=== PATIENT | male | born 1945 | race Caucasian/White ===

== ENCOUNTER 2017-11-10 08:00 | Outpatient (RCR) | payer MEDICARE, OTHER, SELFPAY ==
--- NOTE | 2017-10-10 10:28 | HP.OTEVAL_ITS ---
Patient's Visit Information MORENA MICHAEL is a 72 year old M, referred to Occupational Therapy by Gatito Reilly MD,, with a diagnosis of extensor laceration with repair. Date of Evaluation: 10/10/17 Occupational Therapist: Dori Mckee, OTR/Zander, CHT - Subjective Subjective: Pt states he got his hand caught in a log splitter on Aug.11 - ER here in [place] [facility] to [place] to see Dr. Reilly- performed sx. 3-4 days later-( pt is unsure of the date)and another sx was on Sep.03 for further repair - pt just to on Oct.04 for pin removal- has ordered OT to eval and tret. strengthening- ADL/work simplification/joint protection AROM/AAROM- edema control PROM scar mtg. pt is retired [employer] and has cont. to be active with home mtg and leisure activities as golf and splitting fire wood. - ROM ROM Comments: right/left IF MCP 78/85 PIP 93/98 DIP 45/55. right/Left MF MCP 79/90 PIP 80/103 DIP 50/55. right/Left RF 65/80 PIP 88/105 DIP 30/60. right/ LEft LF 65/80 PIP/DIP NA - Strength Shoulder: Right/left WFL Elbow: right/ left WFL Forearm: right/ left wfl Wrist: right/ left wfl Tar Roofer: RIGHT 40# left 80# Lateral Pinch: right 12# left 143 Tripod Pinch: right 10# left 12# - Edema PIP: right MF 7.5 left 6.5 right RF 6.0 left 5.5 - Sensation Sensation Comments: denies any sensation changes to digits 1-4. digit 5 discomfort with cold weather only - In-Hand Manipulation Finger to Palm Translation: Moderate - Right, Normal - Left Palm to Finger Translation: Moderate - Right, Normal - Left Shift: Mild - Right, Normal - Left Rotation: Mild - Right, Normal - Left - Hand/Wrist Evaluation Total Score of Pain & Functional Sections: 32 - Goals Goal:Daily scar massage when approriate: Yes Goal:ROM equal to unaffected hand: Yes Goal:Tar Roofer/Pinch strength at least 75% of unaffected hand: Yes Goal:PIP Circumferences equal to unaffected hand: Yes Goal:Full use of affected hand in daily activities including: Yes Goal:Decrease scar hypersensitivity: Yes - Rehabilitation General Assessment: Laceration of extensor muscle fascia and tendon of right middle finger at wrist and hand level. Laceration of right ring finger with complication. Amputation of right LF proximal PIP -. PT demo with healing extensor tendon repairs of right RF and MF-he is demo limited ability to form a composite fist with his dominate hand. Pt also demo with weak conveyor tender and pinch strength and decrease in FM coordination and dext. this is limiting pts ind. with BADLS and IADLS at this time req. assist from others. Pt would benefit from skilled CHT services to increase pts ind. with BADLS and IADLs . Rehabilitation Potential: Good - Anticipated Interventions Anticipated Interventions: A/AAROM/PROM, Strengthening, Edema Control, Scar Care , Triggerpoint Release, Desensitization, Modalities, Orthoses, Joint Protection/ Energy Conservation, Fine Motor Coord/Felipe - Visit Plan Frequency: 2x /Week Duration: 4 Weeks General Plan: pt to perform blocking ex with use of orthosis- pt demo required ed. on donning and doffing orthosis and review of ex. Will initiate mobilization program and porgress to strengthening as able- pt ed. this session on ad. eq. for meal prep- pt demo understanding of ex- pt ed. this session with scar mtg pt demo understanding. TEXT: Thank you for the opportunity to evaluate your patient. For Medicare and Medicare HMO plans, please review the plan of care and approve it. It will need to be FAXED BACK to us at [phone] for Medicare purposes. Please let me know if there are questions or concerns regarding this plan of care. Physician Signature: Date:
--- NOTE | 2017-11-11 09:05 | HP.OTREVAL ---
Gatito Reilly MD, It has been my pleasure to treat MORENA MICHAEL over the last 10 visits for extensor laceration with repair. Please see the progress note below for an update on the occupational therapy plan of care! Subjective: Pt states he is doing well- states he is ind. with HEP and Ind with BADLS and IADLS. pt states he cont. to have stiffness in AM but after working with his hand it is better. 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 right IF PIP 0/100. Right MF PIP 0/100 DIP No change in ROM from inital eval. right RF PIP 0/100. RIght LF MCP 0/75. PT demo with full composite fist- pt reports ind. with all BADLS and IADLS Plan Frequency: Pt to call and schedule if he feels he needs prior to his apt in december Duration: PRN until seen by drMaddy in december Plan: Pt has met goals in therapy and will see you in December- PT will cont with HEP until he is D/C from you or unless you have any other concerns you want therapy to address. pt was advised to call if he had any questions or concerns prior to his Dr. Anticipated Interventions Anticipated Interventions: A/AAROM/PROM, Strengthening, Edema Control, Scar Care, Triggerpoint Release, Desensitization, Modalities, Orthoses, Joint Protection/Energy Conservation, Fine Motor Coord/Felipe Please do not hesitate to contact me at [phone] by phone or if you have questions or concerns regarding this new plan of care! Sincerely, Dori Mckee, OTR/L, CHT
--- NOTE | 2017-11-11 09:06 | OTREVAL_ITS ---
Gatito Reilly MD, It has been my pleasure to treat MORENA MICHAEL over the last 10 visits for extensor laceration with repair. Please see the progress note below for an update on the occupational therapy plan of care! Subjective: Pt states he is doing well- states he is ind. with HEP and Ind with BADLS and IADLS. pt states he cont. to have stiffness in AM but after working with his hand it is better. 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 right IF PIP 0/100. Right MF PIP 0/100. right RF PIP 0/100. RIght LF MCP 0/75. PT demo with full composite fist- pt reports ind. with all BADLS and IADLS Plan Frequency: 2x /Week Duration: 4 Weeks Plan: D/C Anticipated Interventions Anticipated Interventions: A/AAROM/PROM, Strengthening, Edema Control, Scar Care , Triggerpoint Release, Desensitization, Modalities, Orthoses, Joint Protection/ Energy Conservation, Fine Motor Coord/Felipe Please do not hesitate to contact me at [phone] by phone or Fax: if you have questions or concerns regarding this new plan of care! Sincerely, Dori Mckee, OTR/L, CHT
--- NOTE | 2018-02-22 13:01 | HP.OTDCSUM ---
HP - OT D/C Summary It has been my pleasure to treat MORENA MICHAEL under orders from Gatito Reilly MD, for the diagnosis of extensor laceration with repair for a total of 10 visit(s). Please see the following information for a summary of their discharge status. - Overall Improvement % Improvement: 100 - Objective Objective/Function: right pulmonary function technologist 54#. right IF PIP 0/100. Right MF PIP 0/100 DIP No change in ROM from inital eval. right RF PIP 0/100. RIght LF MCP 0/75. PT demo with full composite fist- pt reports ind. with all BADLS and IADLS - Goals Patient Goals: Regain Mobility, Regain Strength, Return to Work, Decrease Swelling/Stiffness, Improve Fine Motor Skills, Use Hand/Wrist/Arm Normally Again, Increase ROM, Be More Independent in ADLS, Decrease Sensitivity Goal:Daily scar massage when approriate: Yes Goal:ROM equal to unaffected hand: Yes Goal:Change Management/Pinch strength at least 75% of unaffected hand: Yes Goal:PIP Circumferences equal to unaffected hand: Yes Goal:Full use of affected hand in daily activities including: Yes Goal:Decrease scar hypersensitivity: Yes - Plan Plan: Pt has met goals in therapy and will see you in December- PT will cont with HEP until he is D/C from you or unless you have any other concerns you want therapy to address. pt was advised to call if he had any questions or concerns prior to his Dr. - D/C Information If there are questions or concerns regarding this patient's occupational therapy, please fell free to call me at [phone]. Thank you for the referral of this patient. Sincerely, Dori Mckee, OTR/L, CHT
== END 2017-11-10 19:00 | disposition home or self-care (01) ==
LOC: OT 08:00
PROVIDERS: Family Provider Family Medicine; PCP Family Medicine; Visit Provider Orthopaedic Surgery
DX: S66.322D Laceration of extensor muscle, fascia and tendon of right middle finger at wrist and hand level, subsequent encounter (principal); S61.214D Laceration without foreign body of right ring finger without damage to nail, subsequent encounter; S68.11 Complete traumatic metacarpophalangeal amputation of other and unspecified finger
CPT/HCPCS: 97035; 97110; 97140; 97167; 97530

== ENCOUNTER 2018-01-06 13:59 | Day surgery (SDC) | payer MEDICARE, OTHER, SELFPAY ==
[2018-01-06] VITALS (9 sets, daily range): BP systolic 123–192; BP diastolic 58–104; PULSE 63–84; RESP 16–17; TEMP 36.7; O2SAT 92–97; BMI 30.5
--- NOTE | 2018-01-06 09:00 | ED.RN ---
This nurse attempted to have patient swallow coke and patient unable to. md notified
[2018-01-06 09:31] LABS: Absolute Lymphocyte Count 1.07 X10^3/ul (0.83-4.51); Absolute Neutrophil Count 4.5 X10^3/uL (2.0-7.7); Basophil# 0.01 X10^3/uL; Basophil% 0.2 % (0-1); Eosinophil# 0.35 X10^3/uL; Eosinophils% 5.4 % (0-5); Hematocrit 45.6 % (40-54); Hemoglobin 14.9 g/dl (13.0-16.5); Lymphocyte # 1.07 X10^3/ul (4.0); Lymphocyte % 16.4 % (19-41); Mean Corp Hgb Conc 32.7 g/gl (32-36); Mean Corpuscular Volume 91.9 fL (80-94); Mean Platelet Vol. 9.8 fl (6.2-12.0); Monocyte# 0.61 X10^3/uL; Monocyte% 9.3 % (0-10); Neutrophil # 4.49 X10^3/uL (2.7-7.7); Neutrophil % 68.5 % (47-70); Platelet Count 262 K/mm3 (150-450); RBC Distribution Width CV 12.7 % (11.6-14.6); Red Blood Count 4.96 M/mm3 (4.6-6.2); White Blood Count 6.5 K/mm3 (4.4-11.0)
[2018-01-06 09:39] LABS: POSITIVE COUNT NO; POSITIVE DIFFERENTIAL NO; POSITIVE MORPHOLOGY NO
[2018-01-06 09:47] LABS: Anion Gap 8 (5-15); BUN 9 mg/dL (7-18); BUN/Creat Ratio 10.6 RATIO (10-20); Calcium,Total 9.4 mg/dL (8.5-10.1); Chloride 103 mmol/L (98-107); Creatinine, Serum 0.85 mg/dL (0.70-1.30); EST Glomerular Filtration Rate 94 mL/min (>60); Est Glom Filt Rate - Afr Amer 113 mL/min (>60); Estimated Creatinine Clearance 79.92 ml/min; Glucose 119 mg/dL (74-106); Potassium 3.9 mmol/L (3.5-5.1); Sodium Level 141 mmol/L (136-145)
[2018-01-06] MEDS: proMETHazine 25 MG/ML Syringe 6.25 MG IV (10:11)
[2018-01-06] MEDS: Glucagon 1 MG/ML Syringe IV (10:17)
[2018-01-06] MEDS: Midazolam 2 MG/2 ML Syringe IV (10:18)
--- NOTE | 2018-01-06 10:29 | ED.RN ---
AFTER MEDICATIONS GIVEN PATIENT FALLING ASLEEP, MOUTH BREATHING, AND NOT TAKING DEEP BREATHS CAUSING SPO2 TO DROP TO 89% ON RA. 3L O2 VIA NC APPLIED AND SPO2 95-97%.
--- NOTE | 2018-01-06 10:33 | RAD_ITS ---
STUDY: X-RAY - SOFT TISSUE NECK REASON FOR EXAM: Male, 72 years old. Dysphasia. Possible radiopaque foreign body. TECHNIQUE: view(s) of the neck were obtained. COMPARISON: None. FINDINGS: Normal visualized nasopharynx, oropharynx, hypopharynx. Normal epiglottis. Normal visualized subglottic tracheal air column. Normal prevertebral soft tissue structures. There are degenerative changes of the cervical spine with cervical spondylosis. There is no demonstrated radiopaque foreign body. There are atherosclerotic calcifications of the carotid arteries. RAD/Neck for Soft Tissue IMPRESSION: No radiopaque foreign body is seen. Atherosclerotic calcification of the carotid bifurcation. Electronically Signed: Juan Miguel Cox MD at 11:08 EDT Tel [phone], Service support ,
--- NOTE | 2018-01-06 14:26 | ED.VISSUMM ---
- ER Visit Summary Date of Service: 01/06/18 Chief Complaint: [] Retained foreign body History of Present Illness: The patient is a 72 M [] complaining of sensation of retained foreign body that may be a pill fragment since last night. Patient reports he is unable to swallow his own saliva or drink any fluid. He reports choking sensation with multiple repeat attempts. Reports he has had this occur in the past has required EGD for resolution. Physical Examination: [] Afebrile, vital signs stable. 72-year-old male no acute distress. Unable to handle his own secretions. Cardiovascular exam was regular rate and rhythm. Lungs are clear to auscultation. Abdomen is soft and nontender. Test Results: [] CBC, BMP are within normal limits. Soft tissue x-ray of the neck shows no obvious foreign body retention. Emergency Department Course and Treatment: [] The patient was given intravenous fluids, Phenergan, glucagon, Versed, viscous oral lidocaine and attempt to resolve this foreign body sensation. After 3 unsuccessful attempts at taking oral fluids/ice chips the patient was discussed with Dr. Huff, baffle installer, who will perform an EGD. Treatment Plan: [] Transfer to endoscopy suite for urgent EGD. Disposition: [] Transfer to endoscopy suite. Stable. Impression: [] Retained esophageal foreign body This note was generated with [employer] dictation software. It may contain incorrect words, spelling, and punctuation that were not noted in review of the chart prior to signing ED Disposition - Plan for ED Patient: Disposition: Home or Assisted Living Chief Complaint: Foreign Body
--- NOTE | 2018-01-06 14:29 | ED.DCSUM_ITS ---
- ER Visit Summary Date of Service: 01/06/18 Chief Complaint: [] Retained foreign body History of Present Illness: The patient is a 72 M [] complaining of sensation of retained foreign body that may be a pill fragment since last night. Patient reports he is unable to swallow his own saliva or drink any fluid. He reports choking sensation with multiple repeat attempts. Reports he has had this occur in the past has required EGD for resolution. Physical Examination: [] Afebrile, vital signs stable. 72-year-old male no acute distress. Unable to handle his own secretions. Cardiovascular exam was regular rate and rhythm. Lungs are clear to auscultation. Abdomen is soft and nontender. Test Results: [] CBC, BMP are within normal limits. Soft tissue x-ray of the neck shows no obvious foreign body retention. Emergency Department Course and Treatment: [] The patient was given intravenous fluids, Phenergan, glucagon, Versed, viscous oral lidocaine and attempt to resolve this foreign body sensation. After 3 unsuccessful attempts at taking oral fluids/ice chips the patient was discussed with Dr. Huff, chief of anesthesiology, who will perform an EGD. Treatment Plan: [] Transfer to endoscopy suite for urgent EGD. Disposition: [] Transfer to endoscopy suite. Stable. Impression: [] Retained esophageal foreign body This note was generated with [employer] dictation software. It may contain incorrect words, spelling, and punctuation that were not noted in review of the chart prior to signing ED Disposition - Plan for ED Patient: Disposition: Acute Care [facility] Chief Complaint: Foreign Body Referrals: Asad Morton MD [Primary Care Provider] -
[2018-01-06 15:01] LABS: Bedside Glucose 80 mg/dL (70-110)
--- NOTE | 2018-01-06 17:10 | PCM.OP.BLANK ---
Operative Report Date of Procedure: 01/06/18 Preop diagnosis: Foreign body of the esophagus Postop diagnosis: EGD with foreign body removal Anesthesia: Provided the MAC Instrument: Olympus upper endoscope Informed consent was taken prior to procedure. The patient was brought to the endoscopy suite[ she] was placed left shoulder down. Retropharynx was sprayed with topical Cetacaine spray. Anesthesia provided the MAC. The scope was passed under direct visualization down into the esophagus. The proximal esophagus at 20 cm was a foreign body. The scope could not be passed by the foreign body using a snare the piece of meat was grasped and brought out. The scope was reintroduced into the esophagus there was a second piece of meat and this was brought out with the snare. The scope was reintroduced back into the esophagus the esophagus was clear there were tertiary contractions of the esophagus noted. The Z line was centimeters from the incisors there was a hiatal hernia no evidence of Thurston's mucosa. Stomach was examined the pylorus was deformed the bulbar duodenum appeared normal. The scope was withdrawn back into the stomach retroflexion was performed there was a hiatal hernia noted. The stomach was decompressed was withdrawn from the esophagus again in the proximal esophagus appeared to be some narrowing of the mucosa, there appeared to be tertiary contractions. Patient tolerated procedure well. Impression: Foreign body in the proximal esophagus removed with a snare patient appears to have some tertiary contractions of the esophagus. Soft diet continue the patient on a PPI should undergo a barium esophagram with a 12 mm tablet Plan: See above CC a copy
== END 2018-01-06 18:00 | disposition home or self-care (01) ==
PROVIDERS: Emergency Medicine; Family Provider Family Medicine; PCP Family Medicine; Visit Provider Internal Medicine Gastroenterology
PROC: 0DJ08ZZ Inspection of Upper Intestinal Tract, Via Natural or Artificial Opening Endoscopic (ICD-10-PCS; CPT 43235; principal; 2018-01-06 15:55)
DX: T18.128A Food in esophagus causing other injury, initial encounter (principal); X58.XXXA Exposure to other specified factors, initial encounter; K22.4 Dyskinesia of esophagus; K44.9 Diaphragmatic hernia without obstruction or gangrene; I25.10 Atherosclerotic heart disease of native coronary artery without angina pectoris; I65.29 Occlusion and stenosis of unspecified carotid artery; I10 Essential (primary) hypertension; Z87.891 Personal history of nicotine dependence; E78.00 Pure hypercholesterolemia, unspecified; E11.9 Type 2 diabetes mellitus without complications; Z79.84 Long term (current) use of oral hypoglycemic drugs; K21.9 Gastro-esophageal reflux disease without esophagitis; Z79.01 Long term (current) use of anticoagulants; Z79.82 Long term (current) use of aspirin; Z79.899 Other long term (current) drug therapy; Z86.73 Personal history of transient ischemic attack (TIA), and cerebral infarction without residual deficits
CPT/HCPCS: 43247; 70360; 80048; 82962; 85025; 96374; 96375; 99282; J7030; J7040; J7120; A4216; J1610

== ENCOUNTER 2018-01-29 18:28 | Emergency (ER) | payer MEDICARE, OTHER, SELFPAY ==
[2018-01-29 18:30] VITALS: BP 193/103; PULSE 78; RESP 16; TEMP 36.7; O2SAT 93; BMI 28.5
--- NOTE | 2018-01-29 19:23 | ED.DCSUM_ITS ---
- ER Visit Summary Date of Service: 01/29/18 Chief Complaint: Low back pain History of Present Illness: The patient is a 72 M history of muscle skeletal back pain. He has never had back surgery. He denies any fever. He denies any fall or trauma other than getting up from a lying position. He states he has had low back pain for last couple weeks. Said he was getting up out of bed or chair and he aggravated. Reason why he is here as he wants something for pain. He says he has had esophageal narrowing has had recent multiple scopes and even esophageal dilatation and he does have trouble swallowing pills. He is on Plavix. He denies any bowel or bladder incontinence. He denies any leg weakness or numbness. Physical Examination: Older male no acute distress. Vital signs are stable afebrile. HEENT exam unremarkable lungs clear to auscultation bilaterally. Heart regular rate and rhythm no murmur. Abdomen soft nontender nondistended no giving or masses normal bowel sounds no pulsatile mass. Extremities moving all 4. Neurovascular intact. He has no cauda equina or saddle anesthesia. He has normal medial thigh sensation. He has 5 out of 5 dorsi plantar flexion of both lower extremities. He has negative straight leg raise bilaterally. Back exam is no reproducible tenderness he complains of pain in his lower lumbar spine region. There is no redness or warmth. No bony deformity. He is able to flex and extend about the spine. There are no signs of trauma. Test Results: None Emergency Department Course and Treatment: Subcu injection of morphine and discharged to home. Treatment Plan: Follow-up with your primary care physician. Return to ER if you develop a fever, leg weakness or bowel or bladder incontinence. Disposition: Discharge Impression: Musculoskeletal back pain This note was generated with [employer] dictation software. It may contain incorrect words, spelling, and punctuation that were not noted in review of the chart prior to signing ED Disposition - Plan for ED Patient: Chief Complaint: Back Referrals: Asad Morton MD [Primary Care Provider] -
--- NOTE | 2018-01-29 19:23 | ED.DEP ---
ED Disposition - Plan for ED Patient: Disposition: Home or Assisted Living Chief Complaint: Back Instructions: ED Low Back Pain Injury Referrals: Asad Morton MD [Primary Care Provider] - 3-5 Days if not improving Additional Instructions: Hot shower, warm bath and compresses to back. Call follow-up the primary care physician if not improving. Return to the ER if you develop leg weakness or bowel or bladder incontinence.
[2018-01-29] MEDS: morphine 10 MG/ML Syringe SC (19:29)
[2018-01-29 19:48] VITALS: PULSE 85; RESP 18; O2SAT 91
== END 2018-01-29 19:50 | disposition home or self-care (01) ==
PROVIDERS: Emergency Provider Emergency Medicine; Family Provider Family Medicine; PCP Family Medicine
DX: M54.5 Low back pain (principal); I10 Essential (primary) hypertension; E78.00 Pure hypercholesterolemia, unspecified; E11.9 Type 2 diabetes mellitus without complications; Z79.84 Long term (current) use of oral hypoglycemic drugs; Z79.82 Long term (current) use of aspirin; Z79.899 Other long term (current) drug therapy; Z86.73 Personal history of transient ischemic attack (TIA), and cerebral infarction without residual deficits; Z87.891 Personal history of nicotine dependence
CPT/HCPCS: 96372; 99282

== ENCOUNTER 2018-02-03 01:25 | Emergency (ER) | payer MEDICARE, OTHER, SELFPAY ==
[2018-02-03 01:26] VITALS: PULSE 75; RESP 18; TEMP 37.1; O2SAT 92; BMI 27.6
--- NOTE | 2018-02-03 02:06 | ED.VIS.GEN ---
History of Present Illness Chief Complaint: Back Informant: Patient Onset: Hours - 1-2 Context: Sudden Onset - awoke w/ it while sleeping in his recliner Timing: Continuous Current Severity: Mild Maximum Severity: Severe Worsened by: sitting up, moving Relieved by: relieved w/ time/waiting Associated Symptoms: transient radiation down LLE to top of foot -- gone now Narrative: No bowel or bladder dysfunction. Patient states he has had this chronic discomfort in his back for the past 30 years, it has been a little more of an issue for the past 2 or 3 weeks and he saw his doctor about that and was placed on muscle relaxers, he takes that and Tylenol as needed. He took his muscle relaxer before going to sleep, and woke up in the exacerbation of pain. No new symptoms. He has had some off and on periumbilical abdominal discomfort in the past 2-3 weeks, not an issue tonight, but his appetite has been down to the point where he has lost 40 pounds. He saw his doctor regarding this to. He has had some history of esophageal narrowing and does have some difficulty swallowing pills sometimes, but he drank some fluids today without difficulty, he knows he needs to drink more of them. He has not felt lightheaded or near syncopal. No vomiting or nausea. He has had a very dry throat but not a painful one. He is scheduled for a cookie swallow later today in workup of these symptoms. He states that his back feels back to baseline now, which is relatively mild, and he feels like an idiot for being here. Past Medical History - Allergies and Home Meds Allergies/Adverse Reactions: Allergies No Known Allergies Allergy (Verified 02/03/18 01:30) Home Medications: Home Medications Medication Instructions Recorded Aspirin [Aspirin, Baby] 81 mg PO DAILY@0800 08/11/17 Metformin HCl 1,000 mg PO DAILY 08/11/17 Metformin HCl 500 mg PO QHS 08/11/17 Metoprolol Succinate [Toprol Xl] 25 mg PO DAILY 08/11/17 Ramipril [Altace] 10 mg PO DAILY 08/11/17 Simvastatin [Zocor] 40 mg PO QHS 08/11/17 Pantoprazole Sodium [Protonix] 40 mg PO DAILY 01/06/18 Primary Care Physician: Asad Morton MD [Primary Care Provider] - Smoking Status: Former smoker Review of Systems All systems negative except as indicated General: Reports: Weight loss - 40 lbs in past month. Denies: Fever, Sweats ENT: Reports: - - problems swallowing. dry mouth/throat.. Denies: Sore throat Cardiovascular: Denies: Chest pain Respiratory: Denies: Dyspnea, Cough Gastrointestinal: Reports: Abdominal pain - intermittent. Denies: Nausea, Vomiting, Diarrhea, Melena, Hematochezia Genitourinary: Denies: Dysuria, Hematuria Musculoskeletal: Reports: Back pain. Denies: Arthralgias, Neck pain Skin: Denies: Rash, Abscess Neurological: Denies: Headache, Weakness, Parasthesia, Numbness Psych: Reports: Anxiety - I live alone.. Denies: Depression, Suicidal thoughts Physical Exam Vital Signs/Narrative: Vital Signs Temp Pulse Resp Pulse Ox 02/03/18 01:26 98.8 F 75 18 92 General: Well nourished, Well developed Head: Normocephalic, Atraumatic Eyes: Perrl, EOMI ENT: No rhinorrhea, Dry mucous membranes. Negative for: Nasal congestion, Sinus tenderness Neck: Supple, Nontender, No lymphadenopathy Cardiovascular: Regular rate, Regular rhythm, No murmurs. Negative for: Tachycardia Respiratory: No distress, CTA bilaterally, Chest nontender Abdomen: Soft, Nontender, Nondistended, Normal bowel sounds Back: Nontender, Normal Inspection. Negative for: CVA tenderness, Spinal tenderness Extremities: Nontender, No edema, - - Negative bilateral straight leg raises. Skin: Normal color, No rash Neurological: Alert, Oriented x3, Cranial nerves II-XII grossly intact, Normal Strength, Normal Sensation, Normal DTR - And no clonus bilaterally, - - can sit up on his own. mild pain w/ doing so, but no difficulty. Psychological: Normal affect Diagnostic/Tx/Re-eval - Medical Decision Making Patient offered Tylenol. He declines. He wishes to be discharged home. He states he has Tylenol at home if he chooses to use it, he feels like he should have tried before he came here. He is wanting a telephone to call for a ride. I think that is reasonable. Encouraged to drink plenty of fluids, may be add boost or Ensure shakes in order to get nutrition, and go to his study today and make sure and follow-up with his doctor and he is comfortable with that plan. ED Disposition - Plan for ED Patient: Disposition: Home or Assisted Living Chief Complaint: Back Diagnosis: Acute exacerbation of chronic low back pain, Dysphagia Instructions: ED Spasm Back No Trauma Referrals: Asad Morton MD [Primary Care Provider] - 3-5 Days
[2018-02-03 02:22] VITALS: BP 164/87; PULSE 98; RESP 18; O2SAT 96
== END 2018-02-03 02:23 | disposition home or self-care (01) ==
PROVIDERS: Emergency Provider Emergency Medicine; Family Provider Family Medicine; PCP Family Medicine
DX: M54.5 Low back pain (principal); G89.29 Other chronic pain; R13.10 Dysphagia, unspecified; Z87.891 Personal history of nicotine dependence; Z79.82 Long term (current) use of aspirin; Z79.899 Other long term (current) drug therapy
CPT/HCPCS: 99284

== ENCOUNTER → 2018-02-03 12:52 | Outpatient (CLI) | payer MEDICARE, OTHER, SELFPAY ==
--- NOTE | 2018-02-03 12:55 | RAD_ITS ---
STUDY: SWALLOWING STUDY REASON FOR EXAM: Male, 72 years old. DYSPHAGIA TECHNIQUE: The examination was performed with Speech Pathology in attendance. Under fluoroscopic observation, the patient ingested thin barium, thick barium, barium pudding, and barium coated cracker. FLUOROSCOPY TIME: 2:16 minutes/seconds 1896 FL SPOTS, 136 SEC. FL RADIOLOGIST INVOLVEMENT: Radiologist was present and providing direct supervision. COMPARISON: None. FINDINGS: The following was observed during swallowing of the various mixtures of barium: Thin Barium: There was laryngeal penetration was improved with chin tuck maneuver. Thick Barium: There was laryngeal penetration was improved with chin tuck maneuver. Barium Pudding: There was no evidence of aspiration or laryngeal penetration. Barium Coated Cracker: There was no evidence of aspiration or laryngeal penetration. RAD/Swallowing Function w/Video IMPRESSION: There was laryngeal penetration during thin and thick liquid swallows was improved with chin tuck maneuver. The swallow study findings were discussed with the patient by the speech pathologist at the conclusion of the examination. Please see speech pathology report for more information and recommendations. The procedure was performed by speech pathologist under the direct supervision of myself Electronically Signed: Juany Mccarthy MD at 8:45 EDT Tel , Service support ,
--- NOTE | 2018-02-03 13:30 | SP.MBSS_ITS ---
PRIMARY / SECONDARY DIAGNOSIS: dysphagia (R13.10) REFERRING PHYSICIAN: Dr. Kaitlin Hernandes MD CURRENT DIET: regular-soft textures, thin liquids DENTITION: WFL MENTAL STATUS: WNL RESPIRATORY STATUS: O2 via room air PREVIOUS MODIFIED BARIUM SWALLOW STUDY: REASON FOR REFERRAL: Patient is a 72 year old male referred for a modified barium swallow (MBS) study to objectively assess the Patients oropharyngeal swallow function under fluoroscopy secondary to persistent dysphagia following 01/06/2018 swallowing incident resulting in presentation to [facility], with EGD removal of a piece of pork; Patient and Patients significant other reporting persistent feeling of food hanging in throat, requiring multiple swallows, with increasing intense coughing episodes leading to phagophobia, with the Patient reporting that he has lost upwards of 37lbs, does not consistently take his medications due to fear of asphyxiation, and recently has only consumed popsicles. 11/28/2017 EGD revealed severe gastritis. 01/06/2018 EGD with foreign body removal details removal of a 20cm foreign body (piece of meat) followed by removal of a second foreign body (second piece of meat) from the proximal esophagus; noted tertiary contractions and hiatal hernia; no evidence of Barretts mucosa; recommendations for a soft diet with continued proton pump inhibitor in addition, completion of a barium esophagram with a 12mm tablet. 01/16/2018 esophageal dilation revealed mildly severe intrinsic stenosis 25cm from the incisors, dilation completed with 5-18mm balloon dilator to 18mm; report findings available after session; no benefit reported by Patient. MEDICAL HISTORY: Barretts esophagus without dysplasia, gastroesophageal reflux disease, acute superficial gastritis with hemorrhage, Agent [place] exposure, coronary artery disease status post stent placement, transient ischemic attack, Hypertension, hyperlipidemia, type II diabetes mellitus, spinal stenosis, degeneration of intervertebral disc, chronic back and hip pain, unspecified hearing loss with tinnitus, STUDY FINDINGS: Patient participated in a Modified Barium Swallow (MBS) study on 02/03/2018. Dr. Mccarthy was the radiologist present for this evaluation. This study was recorded in the lateral view and images were sent to PACs for storage. The following consistencies were presented to this patient for analysis of oropharyngeal swallow function: thin liquids, pudding, and a regular textured, [employer] cookie. Results of the MBS are as follows: PENETRATION / ASPIRATION SCALE (MILLER): 1 = does not enter airway 2 = enters airway/above vocal folds/ejected 3 = enters airway/above vocal folds/not ejected 4 = enters airway/contacts vocal folds/ejected 5 = enters airway/contacts vocal folds/not ejected 6 = enters airway/below vocal folds/ejected 7 = enters airway/below vocal folds/not ejected despite effort 8 = enters airway/below vocal folds/no effort PENETRATION / ASPIRATION SCALE (SCORE): Thin liquid - 5 mL tsp.: 1 Thin liquids via cup (single sip): 2 Thin liquids via cup (single sip): 2 Thin liquids via cup (single sip): 1 Thin liquids via cup (single sip): 2 Thin liquids via cup (chin tuck): 1* Thin liquids via cup (chin tuck): 1 Thin liquids via cup (chin tuck): 1 Pudding via spoon: 1 Thin liquids via cup (chin tuck): 1 Pudding via spoon (chin tuck): 1 Regular textured cookie (chin tuck): 1 Thin liquids via cup (chin tuck): 1 Thin liquids via cup (chin tuck): 1 * denotes incomplete capture of image IMPRESSION: DIAGNOSIS: mild to moderate pharyngeal dysphagia (R13.13) ORAL PHASE CHARACTERIZED BY: LABIAL SEAL: no labial escape TONGUE CONTROL DURING BOLUS MANIPULATION: cohesive bolus between tongue to palatal seal BOLUS PREPARATION / MASTICATION: timely and efficient chewing and mashing BOLUS TRANSPORT / LINGUAL MOTION: brisk tongue motion ORAL RESIDUE: trace residue lining oral structures PHARYNGEAL PHASE CHARACTERIZED BY: INITIATION OF PHARYNGEAL SWALLOW: bolus head in valleculae at first hyoid excursion SOFT PALATE ELEVATION: no bolus between soft palate and pharyngeal wall LARYNGEAL ELEVATION: partial superior movement of thyroid cartilage/partial approximation of arytenoids cartilage to epiglottic petiole ANTERIOR HYOID EXCURSION: partial anterior movement EPIGLOTTIC MOVEMENT: intermittent partial epiglottic inversion LARYNGEAL VESTIBULE CLOSURE AT HEIGHT OF SWALLOW: complete laryngeal vestibule closure with no air/contrast in laryngeal vestibule PHARYNGEAL STRIPPING WAVE: pharyngeal stripping wave present / diminished PHARYNGOESOPHAGEAL SEGMENT OPENING: partial to minimal distension and duration with marked obstruction of flow TONGUE BASE RETRACTION: wide column of contrast between tongue base and posterior pharyngeal wall PHARYNGEAL RESIDUE: majority of contrast within or on pharyngeal structures ( valleculae, pharyngoesophageal segment) with regular textured consistencies; during less viscous textures; collection of residue within or on pharyngeal structures (valleculae, pharyngoesophageal segment) during trials of less viscous textures ESOPHAGEAL PHASE CHARACTERIZED BY: ESOPHAGEAL BOLUS CLEARANCE IN THE UPRIGHT POSITION: esophageal retention within the upper 3rd of the esophagus with retrograde flow below pharyngoesophageal segment (PES) EFFECTS OF TREATMENT STRATEGIES ATTEMPTED: Chin tuck posture = effective Double swallow = moderately effective Reduced bolus size = moderately effective DIET TEXTURE RECOMMENDATIONS: Will recommend a mechanical soft textured, thin liquid diet. 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 Pharyngeal phase marked by reduced closure of the airway during deglutition attributed to reduced hyolaryngeal excursion inconsistent epiglottic inversion; and clear pharyngeal dysmotility attributed to reduced tongue based retraction and posterior pharyngeal stripping wave action resulting in pharyngeal retention within the valleculae; and reduced pharyngoesophageal segment opening similar in nature to cricopharyngeal achalasia with incomplete inhibition of activation, relative short duration of complete activation inhibition, and abnormal timing of inhibited activation with retention within the pharyngoesophageal segment opening. Deficits related to closure of the airway ameliorated with execution of the chin tuck posture and bolus volume adjustments ; deficits related to pharyngeal dysmotility improved with execution of the chin tuck posture, reduction in bolus volume, and alteration in diet textures. Reported symptoms above primarily attributed to pharyngeal dysmotility issues. RECOMMENDATIONS: Patient requires intensive skilled speech-language intervention targeting continued diet texture management; training and implementation of recommended compensatory strategies; training and implementation of recommended oropharyngeal strengthening exercises to facilitate improved pharyngeal motility / pharyngoesophageal segment opening; and Patient and caregiver training targeting meal preparation. Further workup pending regarding esophageal functioning, with Patient expressing desire for further workup via credit collection associate from ED visitation (Dr. Huff) to improve continuity of care , encouraged to discuss w/ primary care physician to obtain order if desired; both report feeling very confused as to if the Patient has received any dilation , provided documentation during session does not express any completion of dilation (rather hand written notes detailing possible need for dilation, documentation from 01/24/2018 physician encounter note details 01/16/2018 dilatation performed to 18mm due to a benign appearing intrinsic mildly severe stenosis 25mm from the incisors); further expressing confusion in regards to diagnosis of gastroesophageal reflux (was told he does not have reflux, demographic sheet details gastroesophageal reflux with Barretts esophagus). Both the Patient and the Patients significant other appearing frustrated with constant referrals and lack of clarity aside from current findings; encouraged communication with care team. ADDITIONAL COMMENTS/RECOMMENDATIONS: Results and recommendations were discussed with the Patient immediately following MBS completion, with the Patient verbalizing understanding and agreement with all recommendations and education provided. IMAGE COUNT: [id number] G-CODES: SWALLOWING [id number] Current Status: CJ SWALLOWING [id number] Goal Status: CI SWALLOWING [id number] Discharge Status: CJ
== END ==
PROVIDERS: Family Provider Family Medicine; PCP Family Medicine; Visit Provider Nurse Practitioner Adult Health
DX: R13.19 Other dysphagia (principal); M54.5 Low back pain; G89.29 Other chronic pain; Z87.891 Personal history of nicotine dependence; Z79.82 Long term (current) use of aspirin; Z79.899 Other long term (current) drug therapy
CPT/HCPCS: 74230; 92611; 99284; G8996; G8997; G8998

== ENCOUNTER → 2018-02-07 07:17 | Outpatient (CLI) | payer MEDICARE, OTHER, SELFPAY ==
--- NOTE | 2018-02-07 07:20 | RAD_ITS ---
STUDY: X-RAY - ESOPHAGUS (BARIUM SWALLOW) WITH FLUOROSCOPY REASON FOR EXAM: Male, 72 years old. Dysphagia for solids. TECHNIQUE: 19 view(s) of the esophagus were obtained following swallowing of barium. FLUOROSCOPY TIME (if supplied): (1:10) minutes/seconds COMPARISON: None. FINDINGS: There is no demonstrated esophageal foreign body. There is narrowing of the proximal portion of the esophagus at the level of the aortic arch. The ingested 12 mm tablet of barium is trapped at that site. Correlation with endoscopy is recommended. Normal gastroesophageal junction, without a demonstrated hiatal hernia. There is atherosclerotic calcification of the aortic arch with tortuosity of the descending aorta. Normal visualized pulmonary parenchyma. There are diffuse degenerative changes of the visualized thoracic spine. RAD/Esophagus Only IMPRESSION: Narrowing in the proximal portion of the esophagus as described at the level of the aortic arch with trapping of the 12 mm tablet of barium. Endoscopic correlation is recommended. Electronically Signed: Juan Miguel Cox MD at 10:10 EDT Tel [phone], Service support ,
== END ==
PROVIDERS: Family Provider Family Medicine; PCP Family Medicine; Visit Provider Nurse Practitioner Adult Health
DX: R13.19 Other dysphagia (principal)
CPT/HCPCS: 74220

== ENCOUNTER 2018-02-17 01:37 | Emergency (ER) | payer MEDICARE, OTHER, SELFPAY ==
[2018-02-17 01:37] VITALS: BP 184/105; PULSE 86; RESP 25; TEMP 37.1; O2SAT 93; BMI 29.8
[2018-02-17 01:46] LABS: Bedside Glucose 152 mg/dL (70-110)
--- NOTE | 2018-02-17 01:52 | EKG12_ITS ---
Test Reason : WEAKNESS Blood Pressure : / mmHG Vent. Rate : 081 BPM Atrial Rate : 081 BPM P-R Int : 140 ms QRS Dur : 088 ms QT Int : 378 ms P-R-T Axes : -11 010 -15 degrees QTc Int : 439 ms Normal sinus rhythm Inferior-posterior infarct , age undetermined Abnormal ECG Confirmed by TAMMY BOLDEN, JOSIE ([id number]), editor farm journal OSWALD RANDOLPH ([id number]) on 02/20/2018 2:30:14 PM Referred By: SHAYNA Confirmed By:JOSIE MUNOZ MD
--- NOTE | 2018-02-17 01:53 | CT_ITS ---
STUDY: CTA CHEST REASON FOR EXAM: Male, 72 years old. Dysphagia, recent esophageal dilation RADIATION DOSAGE (If Supplied By Facility): CTDIvol = ( 13.79 ) mGy, DLP = ( 667.15 ) mGycm TECHNIQUE: The examination was performed with the intravenous administration of 100ML ml of Isovue 370 contrast material. Post-processing of the angiographic images was performed, with multiplanar reformation and 3D reconstruction. Individualized dose optimization techniques were used for this CT. COMPARISON: None. FINDINGS: Mild stranding of fat about the esophagus compatible with history of recent dilation. No mediastinal hematoma is seen. Normal enhancement of the main pulmonary artery and right and left pulmonary arteries. Normal enhancement of the bilateral peripheral pulmonary arteries. There is no demonstrated pulmonary embolism. Normal thoracic aorta and visualized great vessels. There is no demonstrated aortic dissection. Normal heart and pericardium. Normal mediastinum. Normal hilar regions. Normal visualized trachea and bronchi. Mild emphysema. Dense alveolar disease in the left lower lobe compatible with pneumonia. Normal pleura. Normal chest wall structures. There are degenerative changes of thoracic spine. Normal visualized upper abdomen. CT/CTA Chest W/WO Contrast IMPRESSION: Normal CTA chest examination, without a demonstrated pulmonary embolism or arterial dissection. Left lower lobe pneumonia. Electronically Signed: Edward Alarcon MD at 3:47 EDT Tel , Service support ,
[2018-02-17] MEDS: 0.9% Normal Saline 1,000 ML 1000 ML IV (02:10)
[2018-02-17 02:44] LABS: ALB/GLOB Ratio 0.8 RATIO (0.9-2.4); AST(SGOT) 26 U/L (15-37); Alanine Aminotransfer ALT/SGPT 39 U/L (16-61); Albumin, Serum 3.3 g/dL (3.2-5.0); Alkaline Phosphatase 39 U/L (45-117); Anion Gap 11 (5-15); BUN 12 mg/dL (7-18); BUN/Creat Ratio 15.3 RATIO (10-20); Chloride 103 mmol/L (98-107); Creatinine, Serum 0.79 mg/dL (0.70-1.30); EST Glomerular Filtration Rate 103 mL/min (>60); Est Glom Filt Rate - Afr Amer 124 mL/min (>60); Estimated Creatinine Clearance 67.93 ml/min; Globulin 4.3 g/dL (2.2-4.2); Glucose 152 mg/dL (74-106); Lipase 178 U/L (73-393); Potassium 3.3 mmol/L (3.5-5.1); Protein, Total 7.6 g/dL (6.4-8.2); Sodium Level 144 mmol/L (136-145)
[2018-02-17 02:53] LABS: Absolute Lymphocyte Count 1.33 X10^3/ul (0.83-4.51); Absolute Neutrophil Count 6.8 X10^3/uL (2.0-7.7); Basophil# 0.03 X10^3/uL; Basophil% 0.3 % (0-1); Eosinophil# 0.17 X10^3/uL; Eosinophils% 1.8 % (0-5); Hematocrit 47.8 % (40-54); Hemoglobin 16.4 g/dl (13.0-16.5); Lymphocyte # 1.33 X10^3/ul (4.0); Lymphocyte % 14.3 % (19-41); Mean Corp Hgb Conc 34.3 g/gl (32-36); Mean Corpuscular Hgb 31.2 pg (27.0-32.0); Monocyte# 0.97 X10^3/uL; Monocyte% 10.4 % (0-10); Neutrophil # 6.77 X10^3/uL (2.7-7.7); POSITIVE COUNT NO; POSITIVE DIFFERENTIAL NO; POSITIVE MORPHOLOGY NO; Platelet Count 286 K/mm3 (150-450); RBC Distribution Width CV 13.7 % (11.6-14.6); RBC Distribution Width SD 45.4 fl (35.1-43.9); Red Blood Count 5.25 M/mm3 (4.6-6.2); White Blood Count 9.3 K/mm3 (4.4-11.0)
--- NOTE | 2018-02-17 03:25 | ED.RN ---
md aware of sbp 187/101,earlier was sbp 200's.no new order.
[2018-02-17 03:44] VITALS: BP 194/106; PULSE 88; RESP 17; O2SAT 93
[2018-02-17 05:06] VITALS: BP 151/87; PULSE 70; RESP 13; O2SAT 94
--- NOTE | 2018-02-17 05:51 | ED.VISSUMM ---
- ER Visit Summary Date of Service: 02/17/18 Chief Complaint: [Difficulty swallowing] History of Present Illness: The patient is a 72 M [presents the emergency department with 3 month history of difficulty swallowing. Patient states initially he had an esophageal impaction after eating steak. Patient had EGD by Dr. Danyn Huff who removed the piece of steak. Since that time patient had difficulty swallowing and has lost over 50 pounds. Over the last week patient's had barium swallow evaluation which showed narrowing in the proximal portion of the esophagus at the level of the aortic arch. Yesterday patient had an EGD with Dr. Danny Huff and attempted dilatation of the esophagus. Patient now comes in complaining of not being able to swallow liquids. Patient also states that Dr. Huff ordered a CT scan of the chest for the patient to be performed given concern about possible external compression of the esophagus. Patient was told to follow-up in about a week and a half as Dr. Huff will be out of town apparently on vacation for the next week. Patient has had a cough for more than a month. Patient denies any fever. Patient denies any chest pain or shortness of breath.] Physical Examination: [HEENT-PERRLA, EOMI. Cranial nerves II through XII grossly intact. TMs clear. Mucous membranes moist. No adenopathy. Cardiovascular-regular rate and rhythm without murmur or ectopy Lungs-clear to auscultation, chest wall stable without crepitus or subcu emphysema Abdomen-normoactive bowel sounds, soft, nontender, no rebound or rigidity, no peritoneal signs. Extremities-intact ?4, normal range of motion, normal pulses, atraumatic] Test Results: [EKG obtained on arrival showed a sinus rhythm with a ventricular rate of 81 bpm. CBC with differential showed a white count of 9.3, heme globin 16, hematocrit 48, platelets 286. LFTs were normal. Lipase was 178. Troponin was less than 0.015. CT scan of the chest with IV contrast showed a left lower lobe pneumonia and emphysema otherwise nothing significant.] Emergency Department Course and Treatment: [Patient unable to swallow liquids in the department. Patient was given a liter normal same fluid bolus. Patient was started on Zosyn for concern for aspiration pneumonia. Sputum culture ordered. For the patient's hypertension I did give patient labetalol 10 mg IV with good improvement in his blood pressure. Patient tells me he has been without blood pressure medicine for last 3-4 days. Initially I wanted to discuss case with Dr. Huff however I was told he was no longer associated with the hospital.] This point seeing that we do not have GI coverage at this facility decision was made to transfer patient and patient initially wanted to be transferred to [facility] where he was told he had no beds available. I discussed case with [facility] as this is the patient's second choice and patient was accepted by hospitalist there Dr. Singleton Treatment Plan: [Transfer] Disposition: [Transfer] Impression: [Dysphagia ] Pneumonia-suspect aspiration Hypertension This note was generated with [employer] dictation software. It may contain incorrect words, spelling, and punctuation that were not noted in review of the chart prior to signing ED Disposition - Plan for ED Patient: Chief Complaint: Other, Pain/Inj Referrals: Asad Morton MD [Primary Care Provider] -
--- NOTE | 2018-02-17 05:58 | ED.DCSUM_ITS ---
- ER Visit Summary Date of Service: 02/17/18 Chief Complaint: [Difficulty swallowing] History of Present Illness: The patient is a 72 M [presents the emergency department with 3 month history of difficulty swallowing. Patient states initially he had an esophageal impaction after eating steak. Patient had EGD by Dr. Danny Huff who removed the piece of steak. Since that time patient had difficulty swallowing and has lost over 50 pounds. Over the last week patient's had barium swallow evaluation which showed narrowing in the proximal portion of the esophagus at the level of the aortic arch. Yesterday patient had an EGD with Dr. Danny Huff and attempted dilatation of the esophagus. Patient now comes in complaining of not being able to swallow liquids. Patient also states that Dr. Huff ordered a CT scan of the chest for the patient to be performed given concern about possible external compression of the esophagus. Patient was told to follow-up in about a week and a half as Dr. Huff will be out of town apparently on vacation for the next week. Patient has had a cough for more than a month. Patient denies any fever. Patient denies any chest pain or shortness of breath.] Physical Examination: [HEENT-PERRLA, EOMI. Cranial nerves II through XII grossly intact. TMs clear. Mucous membranes moist. No adenopathy. Cardiovascular-regular rate and rhythm without murmur or ectopy Lungs-clear to auscultation, chest wall stable without crepitus or subcu emphysema Abdomen-normoactive bowel sounds, soft, nontender, no rebound or rigidity, no peritoneal signs. Extremities-intact ?4, normal range of motion, normal pulses, atraumatic] Test Results: [EKG obtained on arrival showed a sinus rhythm with a ventricular rate of 81 bpm. CBC with differential showed a white count of 9.3, heme globin 16, hematocrit 48, platelets 286. LFTs were normal. Lipase was 178. Troponin was less than 0.015. CT scan of the chest with IV contrast showed a left lower lobe pneumonia and emphysema otherwise nothing significant.] Emergency Department Course and Treatment: [Patient unable to swallow liquids in the department. Patient was given a liter normal same fluid bolus. Patient was started on Zosyn for concern for aspiration pneumonia. Sputum culture ordered. For the patient's hypertension I did give patient labetalol 10 mg IV with good improvement in his blood pressure. Patient tells me he has been without blood pressure medicine for last 3-4 days. Initially I wanted to discuss case with Dr. Huff however I was told he was no longer associated with the hospital.] This point seeing that we do not have GI coverage at this facility decision was made to transfer patient and patient [place] [facility] told he had no beds available. I discussed case with [facility] as this is the patient's second choice and patient was accepted by hospitalist there Dr. Singleton Treatment Plan: [Transfer] Disposition: [Transfer] Impression: [Dysphagia ] Pneumonia-suspect aspiration Hypertension This note was generated with [employer] dictation software. It may contain incorrect words, spelling, and punctuation that were not noted in review of the chart prior to signing ED Disposition - Plan for ED Patient: Chief Complaint: Other, Pain/Inj Referrals: Asad Morton MD [Primary Care Provider] -
[2018-02-17 05:59] VITALS: BP 147/71; PULSE 66; RESP 16; TEMP 36.7; O2SAT 93
[2018-02-17 06:07] VITALS: BP 168/80; PULSE 66; RESP 16; O2SAT 98
== END 2018-02-17 08:05 | disposition short-term general hospital (02) ==
PROVIDERS: Emergency Provider Emergency Medicine; Family Provider Family Medicine; PCP Family Medicine
DX: R13.10 Dysphagia, unspecified (principal); J18.9 Pneumonia, unspecified organism; I10 Essential (primary) hypertension; E11.9 Type 2 diabetes mellitus without complications; E78.00 Pure hypercholesterolemia, unspecified; Z87.891 Personal history of nicotine dependence; Z86.73 Personal history of transient ischemic attack (TIA), and cerebral infarction without residual deficits; Z79.84 Long term (current) use of oral hypoglycemic drugs; Z79.899 Other long term (current) drug therapy
CPT/HCPCS: 71275; 80053; 82962; 83690; 84484; 85025; 87070; 87205; 93005; 96361; 96365; 96375; 99285; J7030; Q9967; A4216